=== PATIENT | male | born 1945 | race Hispanic/Latino ===

== ENCOUNTER 2018-07-07 19:06 | Emergency (ER) | payer BC ==
[2018-07-07 19:32] VITALS: TEMP 98.6; O2SAT 99
--- NOTE | 2018-07-07 21:15 | ED PDOC ---
HPI: General Adult Time Seen by Provider: 07/07/18 19:45 Chief Complaint (Nursing): Respiratory Distress Chief Complaint (Provider): shortness of breath and exhaustion History Per: Patient History/Exam Limitations: no limitations Onset/Duration Of Symptoms: Days (1x) Current Symptoms Are (Timing): Better Additional Complaint(s): 73 year old male with HTN presents to the ED or an evaluation of shortness of breath and felt exhausted yesterday. Patient states he has been running around, completing errands. this occured once before when he was exhausted he states. He feels better and the symptoms have resolved. Otherwise, patient denies fever, chest pain, fever, dizziness or headache. PMD: Dr. Wong Past Medical History Reviewed: Historical Data, Nursing Documentation, Vital Signs Vital Signs: Last Vital Signs Temp 98.6 F 07/07/18 19:31 Pulse 61 07/07/18 19:31 Resp 16 07/07/18 19:31 BP 164/77 H 07/07/18 19:31 Pulse Ox 99 07/07/18 19:31 - Medical History PMH: HTN - Surgical History Surgical History: No Surg Hx - Family History Family History: States: Unknown Family Hx - Social History Current smoker - smoking cessation education provided: No Alcohol: None Drugs: Denies - Allergies Allergies/Adverse Reactions: Allergies Allergy/AdvReac Type Severity Reaction Status Date / Time No Known Allergies Allergy Verified 07/07/18 19:39 Review of Systems ROS Statement: Except As Marked, All Systems Reviewed And Found Negative Constitutional: Negative for: Fever Cardiovascular: Negative for: Chest Pain Respiratory: Negative for: Shortness of Breath Gastrointestinal: Negative for: Nausea, Vomiting, Abdominal Pain, Diarrhea Neurological: Negative for: Headache, Dizziness Physical Exam - Reviewed Nursing Documentation Reviewed: Yes Vital Signs Reviewed: Yes - Physical Exam Appears: Positive for: Well, Non-toxic, No Acute Distress Head Exam: Positive for: ATRAUMATIC, NORMAL INSPECTION, NORMOCEPHALIC Skin: Positive for: Normal Color, Warm, Dry. Negative for: Rash Eye Exam: Positive for: EOMI, Normal appearance, PERRL ENT: Positive for: Normal ENT Inspection Neck: Positive for: Normal, Painless ROM, Supple. Negative for: Decreased ROM Cardiovascular/Chest: Positive for: Regular Rate, Rhythm. Negative for: Murmur Respiratory: Positive for: Normal Breath Sounds. Negative for: Decreased Breath Sounds, Wheezing, Respiratory Distress Gastrointestinal/Abdominal: Positive for: Normal Exam, Soft. Negative for: Tenderness, Guarding, Rebound Back: Positive for: Normal Inspection. Negative for: L CVA Tenderness, R CVA Tenderness Extremity: Positive for: Normal ROM. Negative for: Tenderness, Pedal Edema, Deformity Neurologic/Psych: Positive for: Alert, [facility] II-XII, Oriented (x3), Gait (steady). Negative for: Motor/Sensory Deficits - Laboratory Results Result Diagrams: 07/07/18 21:47 07/07/18 21:47 - ECG ECG: Positive for: Interpreted By Me, Viewed By Me ECG Rhythm: Positive for: Sinus Rhythm (with sinus arrhythmia ), Right Bundle Branch Block Interpretation Of Abn EKG: Bifascicular block Rate: 67 O2 Sat by Pulse Oximetry: 99 (RA) Pulse Ox Interpretation: Normal Medical Decision Making Medical Decision Making: Time: 2030 Initial Plan:states he feels "exhausted" and some "sob" BNP CMP CBC w/ Differential Troponin I Chest two views Reevaluation CXR present no infiltrate and labs are unremarkable. trop negative. ekg shows bifascicular block and we have no prior. however pt denies cp and sob at this time. pt has appointment with lead caregiver Dr. Gamboa at [facility] on Thursday morning. He is aware of EKG and findings on CXR. explained to him that he needs to make sure to see his cardio on thursday and not miss apt, and get repeat ekg and further workup . pt aware he needs better bp control Scribe Attestation: Documented by Baljit Lin, acting as a scribe for Mariam Reese MD. Provider Scribe Attestation: All medical record entries made by the Scribe were at my direction and personally dictated by me. I have reviewed the chart and agree that the record accurately reflects my personal performance of the history, physical exam, medical decision making, and the department course for this patient. I have also personally directed, reviewed, and agree with the discharge instructions and disposition. Disposition - Clinical Impression Clinical Impression: Hypertension - Patient ED Disposition Is Patient to be Admitted: No Counseled Patient/Family Regarding: Studies Performed, Diagnosis, Need For Foll owup - Disposition Disposition: Routine/Home Disposition Time: 23:00 Condition: IMPROVED Additional Instructions: follow up with your primary doctor in 1-2 days for reevaluation return to the ED with any worsening or concerning symptoms Instructions: High Blood Pressure in Adults Forms: [facility] (Kyrgyz)
[2018-07-07 21:50] LABS: BASO # 0.1 K/uL (0.0-0.2); BASO % 0.9 % (0.0-2.0); EOS # 0.2 K/uL (0.0-0.7); EOS % 3.3 % (0.0-4.0); HEMOGLOBIN 14.9 g/dL (12.0-18.0); LYMPH # 1.7 K/uL (1.0-4.3); MEAN CELL VOLUME 87.1 fl (80.0-94.0); MEAN CORPUSCULAR HEMOGLOBIN 28.9 pg (27.0-31.0); MEAN CORPUSCULAR HGB CONC 33.1 g/dL (33.0-37.0); MONO # 0.5 K/uL (0.0-0.8); MONO % 7.5 % (0.0-10.0); NEUT # 4.4 K/uL (1.8-7.0); NEUT % 63.3 % (50.0-75.0); NRBC % 0.1 % (0.0-0.0); RBC 5.16 Mil/uL (4.40-5.90); RED CELL DISTRIBUTION WIDTH 14.6 % (11.5-14.5)
[2018-07-07 22:18] LABS: ALB/GLOB RATIO 1.5 (1.0-2.1); ALBUMIN 4.7 g/dL (3.5-5.0); ALT/SGPT 34 U/L (21-72); AST/SGOT 25 U/L (17-59); B-TYPE NATRIURETIC PEPTIDE 221 pg/ml (0-900); BLOOD UREA NITROGEN 19 mg/dl (9-20); CALCIUM 9.4 mg/dL (8.4-10.2); GFR NON-AFRICAN AMERICAN > 60
[2018-07-07 22:58] VITALS: PULSE 67
[2018-07-08 04:59] VITALS: BP 149/62; RESP 20
--- NOTE | 2018-07-08 08:42 | RAD ---
Date of service: 07/07/2018 HISTORY: Shortness of breath COMPARISON: No prior. TECHNIQUE: Chest PA and lateral FINDINGS: LINES AND TUBES: None. LUNG AND PLEURA: The lungs are well inflated. There is subsegmental atelectasis in the lower lobes. No pleural effusion or pneumothorax. HEART AND MEDIASTINUM: There is mild cardiomegaly. No aortic atherosclerotic calcification present. The hilar and mediastinal contours are within normal limits. SKELETAL STRUCTURES: There are old fracture deformities in the left lateral upper and mid thoracic ribs. VISUALIZED UPPER ABDOMEN: Normal. OTHER FINDINGS: None. IMPRESSION: No active pulmonary disease.
== END 2018-07-07 23:15 | disposition home or self-care (01) ==
LOC: H.ER 19:06
DX: I10 Essential (primary) hypertension (principal)